=== PATIENT | female | born 1970 ===

== ENCOUNTER 2019-09-03 10:59 | Outpatient (CLI) | payer MEDICAID ==
--- NOTE | 2019-09-03 12:12 | XRay Report ---
RIGHT WRIST, 4 VIEWS INDICATION: M25.531 PAIN IN RIGHT WRIST. COMPARISON: 12/03/2018 IMPRESSION: Internal fixation of the scaphoid bone is noted and appears unchanged in position and al ignment. The carpal bones are in appropriate relationship. No evidence for acute fracture, ligamentou s injury or bone lesion. Minimal osteoarthritic changes are stable. Mild periarticular osteopenia is stable. The soft tissues are unremarkable. No change is appreciated since 12/03/2018. Signer Name: Jermaine Pickering Jr, MD Signed: 09/03/2019 12:08 PM Workstation Name: [id number]
[2019-09-03 12:54] LABS: Bilirubin,Urine NEG (Negative); Blood,Urine NEG (Negative); Color,Urine Yellow (Yellow); Mucus,Urine FEW /HPF; Urobilinogen,Urine < 2.0 mg/dL (<2.0)
== END 2019-09-03 11:00 | disposition home or self-care (01) ==
LOC: XRAY 10:59
PROVIDERS: ATTEND Orthopaedic Surgery
DX: M25.531 Pain in right wrist (principal); N39.0 Urinary tract infection, site not specified
CPT/HCPCS: 81001; 87086

== ENCOUNTER 2021-09-03 16:49 | Emergency (ER) | payer MEDICAID ==
[2021-09-03] MEDS ORDERED: LIDOCAINE 1%/EPINEPHRINE 1:100,000 VIAL (20 ML) INFILTRATI NR (18:15)
--- NOTE | 2021-09-03 19:26 | Emergency Department Report ---
- General Chief complaint: Headache Stated complaint: PIMPLE TO BACK OF HEAD Time Seen by Provider: 09/03/21 17:40 Source: patient Mode of arrival: Ambulatory Limitations: No Limitations - History of Present Illness Initial comments: 51-year-old female the past medical history of hypertension and diabetes presents to the hospital complaining of a pimple to the back of her head x4 days. It is getting bigger and more painful. No drainage reported. Pain is mild to moderate intensity and worse with palpation. Patient presents with elevated blood pressure. She is compliant with her valsartan 160 mg and atorvastatin. Patient received saw her PMD. She states her blood pressure elevated secondary to pain but it is always high - Related Data Previous Rx's Medication Instructions Recorded Last Taken Type cephALEXin [Keflex] 500 mg PO Q6HR #28 capsule 09/03/21 Unknown Rx Allergies Allergy/AdvReac Type Severity Reaction Status Date / Time No Known Allergies Allergy Unverified 09/03/21 16:52 Abscess Boil HPI - HPI Chief Complaint: Headache Stated Complaint: PIMPLE TO BACK OF HEAD Time Seen by Provider: 09/03/21 17:40 Home Medications: Previous Rx's Medication Instructions Recorded Last Taken Type cephALEXin [Keflex] 500 mg PO Q6HR #28 capsule 09/03/21 Unknown Rx Allergies/Adverse Reactions: Allergies Allergy/AdvReac Type Severity Reaction Status Date / Time No Known Allergies Allergy Unverified 09/03/21 16:52 ED Review of Systems ROS: Stated complaint: PIMPLE TO BACK OF HEAD Other details as noted in HPI Comment: All other systems reviewed and negative ED Past Medical Hx - Past Medical History Hx Hypertension: Yes Hx Diabetes: Yes - Medications Home Medications: Home Medications Medication Instructions Recorded Confirmed Last Taken Type cephALEXin [Keflex] 500 mg PO Q6HR #28 capsule 09/03/21 Unknown Rx ED Physical Exam - General Limitations: No Limitations - Other Other exam information: General: No acute distress Head: Atraumatic, 1 cm indurated area to occipital area without significant fluctuance Eyes: normal appearance ENT: Moist mucous membranes Neck: Normal appearance, no midline tenderness Chest: Clear to auscultation bilaterally CV: Regular rate and rhythm Abdomen: Soft, normal bowel sounds, nontender, nondistended, no rebound or guarding Back: Normal inspection Extremity: Normal inspection, full range of motion Neuro: Alert O x 3, no facial asymmetry, speech clear, no gross motor sensory deficit Psych: Appropriate behavior Skin: No rash ED Course Vital Signs 09/03/21 09/03/21 16:52 18:40 Temperature 98.5 F 98.8 F Pulse Rate 83 88 Respiratory 18 16 Rate Blood Pressure 214/114 224/93 [Right] O2 Sat by Pulse 100 98 Oximetry - I & D Posterior Head Type of Procedure: Simple Site: Posterior scalp Blade Size: 11 I & D Procedure: betadine prep Progress: Lidocaine with epi injected at the site after cleansing with Betadine. 11 blade used to create an incision. No purulent drainage identified ED Medical Decision Making - Medical Decision Making 51-year-old female with a early small nonfluctuant abscess to posterior scalp that did not produce any pus after incision. Patient will be treated with Keflex empirically. Elevated blood pressure noted and appears to be chronic. Patient informed of the importance of follow-up for medication adjustment Critical Care Time: No Critical care attestation.: If time is entered above; I have spent that time in minutes in the direct care of this critically ill patient, excluding procedure time. ED Disposition Clinical Impression: Abscess of head, Chronic hypertension Disposition: HOME / SELF CARE / HOMELESS Is pt being admited?: No Does the pt Need Aspirin: No Condition: Stable Instructions: Skin Abscess, Managing Your Hypertension, Hypertension (ED) Additional Instructions: Take the medication as prescribed. Follow-up with your doctor or doctor/clinic provided. It is very important you follow-up with your doctor regarding your elevated blood pressure for reevaluation and medication adjustment. Return if symptoms worsen as indicated by your discharge instructions. Prescriptions: cephALEXin [Keflex] 500 mg PO Q6HR #28 capsule Referrals: md corrie [Other] - 3-5 Days ERICA DOLL MD [Staff Physician] - 3-5 Days Time of Disposition: 19:54 Print Language: GEORGIAN
[2021-09-03 20:32] VITALS: BP 213/96
== END 2021-09-03 19:58 | disposition home or self-care (01) ==
LOC: ED 16:49
DX: L02.811 Cutaneous abscess of head [any part, except face] (principal); I10 Essential (primary) hypertension
CPT/HCPCS: 10060; 99282; J3490

== ENCOUNTER 2022-01-27 16:30 | Inpatient (IN) | payer MEDICAID ==
[2022-01-27] MEDS ORDERED: MORPHINE 4 MG/1 ML INJ IV ONE (16:59)
[2022-01-27] MEDS ORDERED: ONDANSETRON 4 MG/2 ML INJ IV ONE (16:59)
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
--- NOTE | 2022-01-27 17:29 | XRay Report ---
CHEST 2 VIEWS INDICATION / CLINICAL INFORMATION: Chest Pain. COMPARISON: None available. FINDINGS: SUPPORT DEVICES: None. HEART / MEDIASTINUM: No significant abnormality. LUNGS / PLEURA: No significant pulmonary or pleural abnormality. No pneumothorax. ADDITIONAL FINDINGS: No significant additional findings. IMPRESSION: 1. No acute findings. Signer Name: Candelario Buitrago MD Signed: 01/27/2022 5:24 PM Workstation Name: [id number]
[2022-01-27] MEDS: NITROGLYCERIN 0.4 MG TAB SUBL SL ONE ×2 (18:03→18:44)
[2022-01-27 18:30] LABS: Basophils % (Auto) 0.4 % (0.0-1.8); Eosinophils # (Auto) 0.1 K/mm3 (0.0-0.4); Eosinophils % (Auto) 1.7 % (0.0-4.3); Hematocrit 30.4 % (30.3-42.9); Hemoglobin 10.1 gm/dl (10.1-14.3); Lymphocytes # (Auto) 1.2 K/mm3 (1.2-5.4); Lymphocytes % (Auto) 20.6 % (13.4-35.0); Mean Corpuscular HGB Conc 33 % (30-34); Mean Corpuscular Volume 77 fl (79-97); Monocytes # (Auto) 0.3 K/mm3 (0.0-0.8); Monocytes % (Auto) 5.8 % (0.0-7.3); Platelet Count 329 K/mm3 (140-440); Red Blood Count 3.97 M/mm3 (3.65-5.03)
[2022-01-27 18:36] LABS: INR 0.95 (0.87-1.13)
[2022-01-27 18:43] LABS: Alanine Aminotransferase 12 units/L (7-56); Albumin 2.8 g/dL (3.9-5); BUN/Creatinine Ratio 18; Blood Urea Nitrogen 30 mg/dL (7-17); Calcium 9.1 mg/dL (8.4-10.2); Hemolysis Index 133
[2022-01-27] MEDS ORDERED: ASPIRIN 81 MG TAB CHEW PO ONE (18:45)
[2022-01-27] MEDS ORDERED: ACETAMINOPHEN 325 MG TAB PO PRN (19:38)
[2022-01-27] MEDS ORDERED: oxyCODONE /ACETAMINOPHEN 5-325MG TAB PO PRN (19:49)
[2022-01-27] MEDS ORDERED: LISINOPRIL 40 MG TAB PO SCH (20:00)
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
[2022-01-27] MEDS: NIFEdipine XL 30 MG TAB PO SCH (21:08)
[2022-01-27] MEDS: INSULIN NPH/REGULAR 70/30 INJ SUB-Q SCH (22:00)
[2022-01-27] MEDS: HEPARIN 5,000 UNIT/1 ML VIAL SUB-Q SCH (22:00)
[2022-01-28] MEDS: VALSARTAN 160MG TAB PO SCH ×3 (00:08→22:23)
[2022-01-28] MEDS: MORPHINE 2 MG/1 ML INJ IV PRN ×3 (00:10→22:29)
[2022-01-28] MEDS: hydrALAZINE 20 MG/1 ML INJ IV PRN ×2 (00:15→12:33)
[2022-01-28] MEDS: tiZANidine TAB 4 MG TAB PO PRN ×2 (01:20→22:32)
[2022-01-28 04:02] LABS: Basophils % (Auto) 0.2 % (0.0-1.8); Eosinophils # (Auto) 0.1 K/mm3 (0.0-0.4); Eosinophils % (Auto) 1.3 % (0.0-4.3); Hematocrit 27.9 % (30.3-42.9); Hemoglobin 9.2 gm/dl (10.1-14.3); Lymphocytes % (Auto) 15.7 % (13.4-35.0); Mean Corpuscular HGB Conc 33 % (30-34); Mean Corpuscular Volume 77 fl (79-97); Monocytes # (Auto) 0.3 K/mm3 (0.0-0.8); Platelet Count 280 K/mm3 (140-440); Red Blood Count 3.65 M/mm3 (3.65-5.03); Red Cell Distribution Width 14.1 % (13.2-15.2)
[2022-01-28 04:09] LABS: Alanine Aminotransferase 10 units/L (7-56); Albumin 2.6 g/dL (3.9-5); BUN/Creatinine Ratio 17; Blood Urea Nitrogen 30 mg/dL (7-17); Calcium 8.7 mg/dL (8.4-10.2); Hemolysis Index 1
[2022-01-28] MEDS: ONDANSETRON 4 MG/2 ML INJ IV PRN ×2 (07:26→17:10)
[2022-01-28] MEDS: NIFEdipine XL 30 MG TAB PO SCH ×2 (09:21→22:28)
[2022-01-28] MEDS: PANTOPRAZOLE 40 MG TAB PO SCH (09:22)
[2022-01-28] MEDS: HEPARIN 5,000 UNIT/1 ML VIAL SUB-Q SCH ×2 (09:22→22:26)
[2022-01-28] MEDS: INSULIN NPH/REGULAR 70/30 INJ SUB-Q SCH ×2 (09:27→17:10)
--- NOTE | 2022-01-28 09:46 | Electrocardiograph Report ---
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
--- NOTE | 2022-01-28 09:52 | Electrocardiograph Report ---
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
[2022-01-28] MEDS: INSULIN LISPRO 100 UNIT/ML SUB-Q SCH ×3 (12:33→22:30)
--- NOTE | 2022-01-28 14:12 | Progress Note ---
Assessment and Plan Assessment and plan: Advance Directives: Yes (Full code) VTE prophylaxis?: Chemical Plan of care discussed with patient/family: Yes -- Hypertensive emergency; Moderate control Patient initiated on the hydralazine 10 mg every 3 as needed for blood pressure more than 160/100 Patient also initiated on valsartan 160 every 12 and nifedipine XL 30 mg p.o. daily. Coreg to be added if necessary. Nifedipine increased to 30 mg twice daily, added hydralazine 25 every 8 hours Closely monitor and adjust management as needed --Acute atypical chest pain Serial troponins, closely monitor If blood pressure and troponins are normal patient can be discharged -- SONY (acute kidney injury) Vasomotor nephropathy IV fluids , plenty of oral fluids, monitor renal function Avoid nephrotoxins, renal dosing of meds Nephrology evaluation if needed --IDDM (insulin dependent diabetes mellitus) Continue insulin and coverage Check hemoglobin A1c --Hyperlipidemia Continue statins, low-cholesterol diet -- Severe protein calorie malnutrition Nutrition supplements and supportive care Nutrition consult --severe hypoalbuminemia ; Albumin 2.8, nutrition supplements and supportive care Nutrition consult --DVT prophylaxis On heparin and GI prophylaxis --Advance care planning +30 minutes Disease education conducted, care plan discussed, diagnosis discussed, prognosis discussed. Patient is full code. Patient acknowledges understanding and agreement with care plan. Closely monitor the patient and adjust medications as needed Plan of care reviewed with the patient and her nurse Spent total 45 minutes. Disposition; continue inpatient management History Interval history: I have seen and examined the patient at the bedside Patient's chart and medications reviewed No new events reported by the nursing overnight Patient was admitted with hypertensive emergency Blood pressure remains uncontrolled vital signs noted, patient feels slightly better Hospitalist Physical - Constitutional Vitals: Temp Pulse Resp BP Pulse Ox 98.3 F 75 16 186/84 96 01/28/22 12:22 01/28/22 12:22 01/28/22 03:49 01/28/22 12:22 01/28/22 12:22 General appearance: Present: no acute distress, well-nourished - EENT Eyes: Present: PERRL, EOM intact - Neck Neck: Present: supple, normal ROM - Respiratory Respiratory effort: normal Respiratory: bilateral: diminished, negative: rales, rhonchi, wheezing - Cardiovascular Rhythm: regular Heart Sounds: Present: S1 & S2 - Extremities Extremities: no ischemia, No edema - Abdominal General gastrointestinal: soft, non-tender, non-distended, normal bowel sounds - Integumentary Integumentary: Present: clear, warm - Psychiatric Psychiatric: appropriate mood/affect, cooperative - Neurologic Neurologic: CNII-XII intact, moves all extremities HEART Score - HEART Score EKG: Non-specific Age: 45-65 Risk factors: > 3 risk factors or hx of atherosclerotic disease Troponin: Troponin T 0.022 ng/mL (0.00-0.029) 01/28/22 03:30 Troponin: < normal limit - Critical Actions Critical Actions: 4-6 pts:12-16.6% risk of adverse cardiac event. Should be admitted Results - Labs CBC & Chem 7: 01/28/22 03:30 01/28/22 03:30 Labs: Laboratory Last Values WBC 6.4 K/mm3 (4.5-11.0) 01/28/22 03:30 RBC 3.65 M/mm3 (3.65-5.03) 01/28/22 03:30 Hgb 9.2 gm/dl (10.1-14.3) L 01/28/22 03:30 Hct 27.9 % (30.3-42.9) L 01/28/22 03:30 MCV 77 fl (79-97) L 01/28/22 03:30 MCH 25 pg (28-32) L 01/28/22 03:30 MCHC 33 % (30-34) 01/28/22 03:30 RDW 14.1 % (13.2-15.2) 01/28/22 03:30 Plt Count 280 K/mm3 (140-440) 01/28/22 03:30 Lymph % (Auto) 15.7 % (13.4-35.0) 01/28/22 03:30 [place] % (Auto) 5.0 % (0.0-7.3) 01/28/22 03:30 Eos % (Auto) 1.3 % (0.0-4.3) 01/28/22 03:30 Baso % (Auto) 0.2 % (0.0-1.8) 01/28/22 03:30 Lymph # (Auto) 1.0 K/mm3 (1.2-5.4) L 01/28/22 03:30 [place] # (Auto) 0.3 K/mm3 (0.0-0.8) 01/28/22 03:30 Eos # (Auto) 0.1 K/mm3 (0.0-0.4) 01/28/22 03:30 Baso # (Auto) 0.0 K/mm3 (0.0-0.1) 01/28/22 03:30 Seg Neutrophils % 77.8 % (40.0-70.0) H 01/28/22 03:30 Seg Neutrophils # 5.0 K/mm3 (1.8-7.7) 01/28/22 03:30 PT 13.7 Sec. (12.2-14.9) 01/27/22 Unknown INR 0.95 (0.87-1.13) 01/27/22 Unknown Sodium 140 mmol/L (137-145) 01/28/22 03:30 Potassium 3.6 mmol/L (3.6-5.0) D 01/28/22 03:30 Chloride 104.5 mmol/L (98-107) 01/28/22 03:30 Carbon Dioxide 26 mmol/L (22-30) 01/28/22 03:30 Anion Gap 13 mmol/L 01/28/22 03:30 BUN 30 mg/dL (7-17) H 01/28/22 03:30 Creatinine 1.8 mg/dL (0.6-1.2) H 01/28/22 03:30 Estimated GFR 30 ml/min 01/28/22 03:30 BUN/Creatinine Ratio 17 % 01/28/22 03:30 Glucose 180 mg/dL (65-100) H 01/28/22 03:30 POC Glucose 203 mg/dL (70-105) H 01/28/22 00:05 Calcium 8.7 mg/dL (8.4-10.2) 01/28/22 03:30 Total Bilirubin < 0.20 mg/dL (0.1-1.2) 01/28/22 03:30 AST 14 units/L (5-40) 01/28/22 03:30 ALT 10 units/L (7-56) 01/28/22 03:30 Alkaline Phosphatase 96 units/L (35-129) 01/28/22 03:30 Troponin T 0.022 ng/mL (0.00-0.029) 01/28/22 03:30 Total Protein 4.8 g/dL (6.3-8.2) L 01/28/22 03:30 Albumin 2.6 g/dL (3.9-5) L 01/28/22 03:30 Albumin/Globulin Ratio 1.2 % 01/28/22 03:30 Curry/IV: Voiding Method Toilet Active Medications - Current Medications Current Medications: Generic Name Dose Route Start Last Admin Trade Name Freq PRN Reason Stop Dose Admin Acetaminophen 650 mg 01/27/22 19:38 Acetaminophen 325 Mg Tab PO Q4H PRN Pain MILD(1-3)/Fever >100.5/ARCEO Atorvastatin Calcium 20 mg 01/27/22 19:45 01/28/22 09:22 Atorvastatin 20 Mg Tab PO 20 mg DAILY BRANDON Administration Heparin Sodium (Porcine) 5,000 unit 01/27/22 22:00 01/28/22 09:22 Heparin 5,000 Unit/1 Ml Vial SUB-Q 5,000 unit Q12HR BRANDON Administration Hydralazine HCl 10 mg 01/27/22 20:05 01/28/22 12:33 Hydralazine 20 Mg/1 Ml Inj IV 10 mg Q3H PRN Administration Blood Pressure Insulin Human Isoph/Insulin Regular 25 unit 01/27/22 22:00 01/28/22 09:27 Insulin Nph/Regular 70/30 Inj SUB-Q Not Given BIDDIAB [facility] Insulin Human Lispro 0 unit 01/28/22 11:30 01/28/22 12:33 Insulin Lispro 100 Unit/Ml SUB-Q 3 unit ACHS BRANDON Administration Protocol Morphine Sulfate 2 mg 01/27/22 19:49 01/28/22 10:48 Morphine 2 Mg/1 Ml Inj IV 2 mg Q4H PRN Administration Pain, Moderate (4-6) Nifedipine 30 mg 01/27/22 20:00 01/28/22 09:21 Nifedipine Xl 30 Mg Tab PO 30 mg QDAY BRANDON Administration Ondansetron HCl 4 mg 01/27/22 19:38 01/28/22 07:26 Ondansetron 4 Mg/2 Ml Inj IV 4 mg Q8H PRN Administration Nausea And Vomiting Oxycodone/Acetaminophen 1 tab 01/27/22 19:49 01/27/22 21:40 Oxycodone /Acetaminophen 5-325mg Tab PO 1 tab Q6H PRN Administration Pain, Moderate (4-6) Pantoprazole Sodium 40 mg 01/28/22 07:30 01/28/22 09:22 Pantoprazole 40 Mg Tab PO 40 mg QDAC BRANDON Administration Sodium Chloride 10 ml 01/27/22 22:00 01/28/22 09:27 Sodium Chloride 0.9% 10 Ml Flush Syringe IV Not Given BID BRANDON Sodium Chloride 10 ml 01/27/22 19:38 Sodium Chloride 0.9% 10 Ml Flush Syringe IV PRN PRN LINE FLUSH Tizanidine HCl 4 mg 01/27/22 19:34 01/28/22 01:20 Tizanidine Tab 4 Mg Tab PO 4 mg BID PRN Administration Muscle Spasm Valsartan 160 mg 01/27/22 22:00 01/28/22 09:21 Valsartan 160mg Tab PO 160 mg Q12HR BRANDON Administration
[2022-01-28] MEDS: hydrALAZINE 25 MG TAB PO SCH (22:27)
[2022-01-29] MEDS: hydrALAZINE 25 MG TAB PO SCH (07:02)
[2022-01-29] MEDS: PANTOPRAZOLE 40 MG TAB PO SCH (07:58)
[2022-01-29] MEDS: ONDANSETRON 4 MG/2 ML INJ IV PRN (07:58)
--- NOTE | 2022-01-29 09:13 | Electrocardiograph Report ---
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
[2022-01-29] MEDS: NIFEdipine XL 30 MG TAB PO SCH (09:20)
[2022-01-29] MEDS: HEPARIN 5,000 UNIT/1 ML VIAL SUB-Q SCH (09:21)
[2022-01-29] MEDS: INSULIN NPH/REGULAR 70/30 INJ SUB-Q SCH (09:21)
[2022-01-29] MEDS: VALSARTAN 160MG TAB PO SCH (09:21)
[2022-01-29] MEDS: MORPHINE 2 MG/1 ML INJ IV PRN (09:22)
[2022-01-29 12:40] VITALS: BP 139/58
[2022-01-29] MEDS: INSULIN LISPRO 100 UNIT/ML SUB-Q SCH (13:12)
--- NOTE | 2022-01-29 13:45 | Progress Note ---
Assessment and Plan Assessment and plan: -- Hypertensive emergency; Moderate control Patient initiated on the hydralazine 10 mg every 3 as needed for blood pressure more than 160/100 Patient also initiated on valsartan 160 every 12 and nifedipine XL 30 mg p.o. daily. Coreg to be added if necessary. Nifedipine increased to 30 mg twice daily, added hydralazine 25 every 8 hours Closely monitor and adjust management as needed --Acute atypical chest pain Serial troponins, closely monitor If blood pressure and troponins are normal patient can be discharged -- SONY (acute kidney injury) Vasomotor nephropathy IV fluids , plenty of oral fluids, monitor renal function Avoid nephrotoxins, renal dosing of meds Nephrology evaluation if needed --IDDM (insulin dependent diabetes mellitus) Continue insulin and coverage Check hemoglobin A1c --Hyperlipidemia Continue statins, low-cholesterol diet -- Severe protein calorie malnutrition Nutrition supplements and supportive care Nutrition consult --severe hypoalbuminemia ; Albumin 2.8, nutrition supplements and supportive care Nutrition consult --DVT prophylaxis On heparin and GI prophylaxis --Advance care planning +30 minutes Disease education conducted, care plan discussed, diagnosis discussed, prognosis discussed. Patient is full code. Patient acknowledges understanding and agreement with care plan. Closely monitor the patient and adjust medications as needed Plan of care reviewed with the patient and her nurse Spent total 45 minutes. Disposition; continue inpatient management Hospitalist Physical - Constitutional Vitals: Temp Pulse Resp BP Pulse Ox 98.3 F 85 20 139/58 96 01/29/22 11:32 01/29/22 11:32 01/29/22 09:22 01/29/22 11:32 01/29/22 13:00 General appearance: Present: no acute distress, well-nourished HEART Score - HEART Score EKG: Non-specific Age: 45-65 Risk factors: > 3 risk factors or hx of atherosclerotic disease Troponin: Troponin T 0.022 ng/mL (0.00-0.029) 01/28/22 03:30 Troponin: < normal limit - Critical Actions Critical Actions: 4-6 pts:12-16.6% risk of adverse cardiac event. Should be ad mitted Results - Labs CBC & Chem 7: 01/28/22 03:30 01/28/22 03:30 Labs: Laboratory Last Values WBC 6.4 K/mm3 (4.5-11.0) 01/28/22 03:30 RBC 3.65 M/mm3 (3.65-5.03) 01/28/22 03:30 Hgb 9.2 gm/dl (10.1-14.3) L 01/28/22 03:30 Hct 27.9 % (30.3-42.9) L 01/28/22 03:30 MCV 77 fl (79-97) L 01/28/22 03:30 MCH 25 pg (28-32) L 01/28/22 03:30 MCHC 33 % (30-34) 01/28/22 03:30 RDW 14.1 % (13.2-15.2) 01/28/22 03:30 Plt Count 280 K/mm3 (140-440) 01/28/22 03:30 Lymph % (Auto) 15.7 % (13.4-35.0) 01/28/22 03:30 [place] % (Auto) 5.0 % (0.0-7.3) 01/28/22 03:30 Eos % (Auto) 1.3 % (0.0-4.3) 01/28/22 03:30 Baso % (Auto) 0.2 % (0.0-1.8) 01/28/22 03:30 Lymph # (Auto) 1.0 K/mm3 (1.2-5.4) L 01/28/22 03:30 [place] # (Auto) 0.3 K/mm3 (0.0-0.8) 01/28/22 03:30 Eos # (Auto) 0.1 K/mm3 (0.0-0.4) 01/28/22 03:30 Baso # (Auto) 0.0 K/mm3 (0.0-0.1) 01/28/22 03:30 Seg Neutrophils % 77.8 % (40.0-70.0) H 01/28/22 03:30 Seg Neutrophils # 5.0 K/mm3 (1.8-7.7) 01/28/22 03:30 PT 13.7 Sec. (12.2-14.9) 01/27/22 Unknown INR 0.95 (0.87-1.13) 01/27/22 Unknown Sodium 140 mmol/L (137-145) 01/28/22 03:30 Potassium 3.6 mmol/L (3.6-5.0) D 01/28/22 03:30 Chloride 104.5 mmol/L (98-107) 01/28/22 03:30 Carbon Dioxide 26 mmol/L (22-30) 01/28/22 03:30 Anion Gap 13 mmol/L 01/28/22 03:30 BUN 30 mg/dL (7-17) H 01/28/22 03:30 Creatinine 1.8 mg/dL (0.6-1.2) H 01/28/22 03:30 Estimated GFR 30 ml/min 01/28/22 03:30 BUN/Creatinine Ratio 17 % 01/28/22 03:30 Glucose 180 mg/dL (65-100) H 01/28/22 03:30 POC Glucose 198 mg/dL (70-105) H 01/29/22 11:28 Hemoglobin A1c 8.8 % (4-6) H 01/29/22 04:39 Calcium 8.7 mg/dL (8.4-10.2) 01/28/22 03:30 Total Bilirubin < 0.20 mg/dL (0.1-1.2) 01/28/22 03:30 AST 14 units/L (5-40) 01/28/22 03:30 ALT 10 units/L (7-56) 01/28/22 03:30 Alkaline Phosphatase 96 units/L (35-129) 01/28/22 03:30 Troponin T 0.022 ng/mL (0.00-0.029) 01/28/22 03:30 Total Protein 4.8 g/dL (6.3-8.2) L 01/28/22 03:30 Albumin 2.6 g/dL (3.9-5) L 01/28/22 03:30 Albumin/Globulin Ratio 1.2 % 01/28/22 03:30 Microbiology: Microbiology 01/28/22 23:10 Peripheral/Venous Blood Culture - Preliminary Culture in Progress 01/28/22 23:10 Peripheral/Venous Blood Culture - Preliminary Culture in Progress Curry/IV: Voiding Method Toilet Active Medications - Current Medications Current Medications: Generic Name Dose Route Start Last Admin Trade Name Freq PRN Reason Stop Dose Admin Acetaminophen 650 mg 01/27/22 19:38 01/28/22 22:28 Acetaminophen 325 Mg Tab PO 650 mg Q4H PRN Administration Pain MILD(1-3)/Fever >100.5/ARCEO Atorvastatin Calcium 20 mg 01/27/22 19:45 01/29/22 09:20 Atorvastatin 20 Mg Tab PO 20 mg DAILY BRANDON Administration Heparin Sodium (Porcine) 5,000 unit 01/27/22 22:00 01/29/22 09:21 Heparin 5,000 Unit/1 Ml Vial SUB-Q 5,000 unit Q12HR BARNDON Administration Hydralazine HCl 25 mg 01/28/22 22:00 01/29/22 07:02 Hydralazine 25 Mg Tab PO 25 mg Q8HR BRANDON Administration Insulin Human Isoph/Insulin Regular 25 unit 01/27/22 22:00 01/29/22 09:21 Insulin Nph/Regular 70/30 Inj SUB-Q 25 unit BIDDIAB BRANDON Administration Insulin Human Lispro 0 unit 01/28/22 11:30 01/29/22 13:12 Insulin Lispro 100 Unit/Ml SUB-Q 3 unit ACHS BRANDON Administration Protocol Labetalol HCl 20 mg 01/28/22 21:27 01/28/22 22:26 Labetalol 20 Mg/4 Ml Inj IV 20 mg Q3H PRN Administration Blood Pressure Morphine Sulfate 2 mg 01/27/22 19:49 01/29/22 09:22 Morphine 2 Mg/1 Ml Inj IV 2 mg Q4H PRN Administration Pain, Moderate (4-6) Nifedipine 30 mg 01/28/22 22:00 01/29/22 09:20 Nifedipine Xl 30 Mg Tab PO 30 mg BID BRANDON Administration Ondansetron HCl 4 mg 01/27/22 19:38 01/29/22 07:58 Ondansetron 4 Mg/2 Ml Inj IV 4 mg Q8H PRN Administration Nausea And Vomiting Oxycodone/Acetaminophen 1 tab 01/27/22 19:49 01/27/22 21:40 Oxycodone /Acetaminophen 5-325mg Tab PO 1 tab Q6H PRN Administration Pain, Moderate (4-6) Pantoprazole Sodium 40 mg 01/28/22 07:30 01/29/22 07:58 Pantoprazole 40 Mg Tab PO 40 mg QDAC BRANDON Administration Sodium Chloride 10 ml 01/27/22 22:00 01/28/22 22:30 Sodium Chloride 0.9% 10 Ml Flush Syringe IV 10 ml BID BRANDON Administration Sodium Chloride 10 ml 01/27/22 19:38 Sodium Chloride 0.9% 10 Ml Flush Syringe IV PRN PRN LINE FLUSH Tizanidine HCl 4 mg 01/27/22 19:34 01/28/22 22:32 Tizanidine Tab 4 Mg Tab PO 4 mg BID PRN Administration Muscle Spasm Valsartan 160 mg 01/27/22 22:00 01/29/22 09:21 Valsartan 160mg Tab PO 160 mg Q12HR BRANDON Administration
--- NOTE | 2022-01-29 13:49 | Discharge Summary ---
Providers - Providers Date of Admission: 01/27/22 19:38 Date of discharge: 01/29/22 Attending physician: DORETHA WATKINS 01/28/22 14:10 Consult to Dietitian/Nutrition [CONS] Routine Physician Instructions: Reason For Exam: Reason for Consult: Malnutrition Primary care physician: W[employer]ATOR Hospitalization Condition: Good Pertinent studies: Chest x-ray; no acute abnormality noted Hospital course: -- Hypertensive emergency; Moderate control Patient initiated on the hydralazine 10 mg every 3 as needed for blood pressure more than 160/100 Patient also initiated on valsartan 160 every 12 and nifedipine XL 30 mg p.o. daily. Coreg to be added if necessary. Nifedipine increased to 30 mg twice daily, added hydralazine 25 every 8 hours Closely monitor and adjust management as needed --Acute atypical chest pain Serial troponins, closely monitor If blood pressure and troponins are normal patient can be discharged -- SONY (acute kidney injury) Vasomotor nephropathy IV fluids , plenty of oral fluids, monitor renal function Avoid nephrotoxins, renal dosing of meds Nephrology evaluation if needed --IDDM (insulin dependent diabetes mellitus) Continue insulin and coverage Check hemoglobin A1c --Hyperlipidemia Continue statins, low-cholesterol diet -- Severe protein calorie malnutrition Nutrition supplements and supportive care Nutrition consult --severe hypoalbuminemia ; Albumin 2.8, nutrition supplements and supportive care Nutrition consult --DVT prophylaxis On heparin and GI prophylaxis --Advance care planning +30 minutes Disease education conducted, care plan discussed, diagnosis discussed, prognosis discussed. Patient is full code. Patient acknowledges understanding and agreement with care plan. Closely monitor the patient and adjust medications as needed Plan of care reviewed with the patient and her nurse Spent total 45 minutes. Disposition; continue inpatient management Disposition: 01 HOME / SELF CARE / HOMELESS Final Discharge Diagnosis (Prints w/discharge instructions): Hypertensive emergency improved. Acute atypical chest pain resolved. Acute kidney injury improved. Type 2 diabetes mellitus moderate control. Dyslipidemia. Severe protein calorie malnutrition. Severe hypoalbuminemia. Obesity BMI 34.1 Time spent for discharge: 35 min Core Measure Documentation - Palliative Care Palliative Care/ Comfort Measures: Not Applicable - Core Measures Any of the following diagnoses?: none Exam - Constitutional Vitals: Temp Pulse Resp BP Pulse Ox 98.3 F 85 20 139/58 96 01/29/22 11:32 01/29/22 11:32 01/29/22 09:22 01/29/22 11:32 01/29/22 13:00 General appearance: Present: no acute distress, well-nourished - EENT Eyes: Present: PERRL, EOM intact - Neck Neck: Present: supple, normal ROM - Respiratory Respiratory effort: normal Respiratory: bilateral: diminished, negative: rales, rhonchi, wheezing - Cardiovascular Rhythm: regular Heart Sounds: Present: S1 & S2 - Extremities Extremities: no ischemia, No edema - Abdominal General gastrointestinal: Present: soft, non-tender, non-distended, normal bowel sounds - Integumentary Integumentary: Present: clear, warm - Musculoskeletal Musculoskeletal: strength equal bilaterally - Psychiatric Psychiatric: appropriate mood/affect, cooperative Plan Activity: no restrictions Diet: diabetic Additional Instructions: If you have worsening symptoms contact MD or go to the nearest emergency room as needed. Strongly advised to comply with medications, diet, follow-up visits. Advised follow-up primary care physician in 1 week. If your sugars are high you can increase your Lantus dose to 28 units subcu. Advised to drink plenty of oral fluids and check your BMP at primary care physician in 5 to 7 days Follow up with: PRIMARY CARE, [Primary Care Provider] - 7 Days Prescriptions: hydrALAZINE [Apresoline TAB] 25 mg PO Q8HR #90 tablet
== END 2022-01-29 14:05 | disposition home or self-care (01) | DRG 304 ==
LOC: ED 16:30 → 4A 19:38
PROVIDERS: ADMIT Internal Medicine; ATTEND Internal Medicine
DX: I16.1 Hypertensive emergency (principal); N17.0 Acute kidney failure with tubular necrosis; E43 Unspecified severe protein-calorie malnutrition; I10 Essential (primary) hypertension; E11.9 Type 2 diabetes mellitus without complications; K21.9 Gastro-esophageal reflux disease without esophagitis; E78.5 Hyperlipidemia, unspecified; E78.2 Mixed hyperlipidemia; Z68.34 Body mass index [BMI] 34.0-34.9, adult; R07.89 Other chest pain; E88.09 Other disorders of plasma-protein metabolism, not elsewhere classified; E66.9 Obesity, unspecified
CPT/HCPCS: 36415; 71046; 80053; 82565; 82962; 83036; 84484; 85025; 85610; 87040; 93005; 96374; 96375; 99291; G0378; J3490; Q0177; Q9967; J0360; J1644; J1815; J2270; J2405